=== PATIENT | male | born 1965 | race Caucasian/White ===

== ENCOUNTER 2023-09-24 09:09 | Day surgery (SDC) | payer OTHER ==
[2023-09-18 14:10] LABS: BASOPHILS # (AUTO) 0.1 X10'3 (0-0.2); BASOPHILS % (AUTO) 1.1 % (0-1); EOSINOPHILS # (AUTO) 0.3 X10'3 (0-0.9); EOSINOPHILS % (AUTO) 3.8 % (0-6); LYMPHOCYTES # (AUTO) 1.7 X10'3 (1.1-4.8); LYMPHOCYTES % (AUTO) 25.9 % (21-51); MEAN CORPUSCULAR HGB CONC 33.5 g/dL (33.0-36.5); MEAN CORPUSCULAR VOLUME 86.5 FL (78-98); MONOCYTES # (AUTO) 0.5 X10'3 (0-0.9); MONOCYTES % (AUTO) 7.5 % (2-12); NEUTROPHILS # (AUTO) 4.1 X10'3 (1.8-7.7); NEUTROPHILS % (AUTO) 61.7 % (42-75); PRE OP HEMATOCRIT 42.2 % (42.0-52.0); PRE OP HEMOGLOBIN 14.2 g/dL (14.0-17.9); PRE OP PLATELET COUNT 207 X10'3 (140-440); PRE OP WHITE BLOOD COUNT 6.6 10'3 (4.8-10.8); RED BLOOD COUNT 4.88 X10'6 (4.70-6.10); RED CELL DISTRIBUTION WIDTH 14.6 % (11.5-14.5)
[2023-09-18 14:35] LABS: ALBUMIN 3.9 G/DL (3.4-5.0); ALBUMIN/GLOBULIN RATIO 1.3 (1.1-1.5); ALKALINE PHOSPHATASE 74 IU/L (46-116); BLOOD UREA NITROGEN 18 MG/DL (7-18); BUN/CREATININE RATIO 17.8 (10.0-20.0); CALCIUM 9.4 MG/DL (8.5-10.1); CHLORIDE 105 MMOL/L (99-107); CREATININE 1.01 MG/DL (0.60-1.10); PRE OP ALT 42 U/L (30-65); PRE OP ANION GAP 7 (8-16); PRE OP AST 24 U/L (10-37); PRE OP BILIRUB, TOTAL 0.5 MG/DL (0.0-1.0); PRE OP GLUCOSE 95 MG/DL (70-104); PRE OP POTASSIUM 3.8 MMOL/L (3.4-5.1); PRE OP SODIUM 141 MMOL/L (135-145); TOTAL CARBON DIOXIDE 29.2 MMOL/L (24-32); TOTAL PROTEIN 6.9 G/DL (6.4-8.2); eGFR 76 ML/MIN
[~2023-09-24] VITALS: Ht 180.3 cm; Wt 88.5 kg
[2023-09-24] VITALS (9 sets, daily range): BP systolic 112–143; BP diastolic 69–80; PULSE 52–92; RESP 15–20; TEMP 97.8; O2SAT 92–100
[~2023-09-24 09:09] MED LIST: NO HOME MEDS; cefazolin 2gm/D5W 100mL 100 ML IV ONE; famotidine 20mg tablet PO ONE; ringers solution, lacted 1,000 ML IV SCH
[2023-09-24] MEDS ORDERED: LIDOCAINE 1%/EPI 1:100,000 inj. 10 ML multi-dose vial ONE ×2 (10:50)
[2023-09-24] MEDS ORDERED: rocuronium 10mg/ml inj IV ONE (10:51)
[2023-09-24] MEDS ORDERED: propofol inj 20 ML IV ONE (10:51)
[2023-09-24] MEDS ORDERED: fentaNYL/PF 50MCG/1 ML 2ML syringe ONE (10:51)
[2023-09-24] MEDS ORDERED: BUPIVAcaine/PF 2.5mg/ml (0.25%) 10ml vial ONE (10:51)
[2023-09-24] MEDS ORDERED: midazolam 1 mg/ML 2ml injection ONE (10:51)
[2023-09-24] MEDS ORDERED: sevoflurane 250ml liquid IH ONE (10:56)
[2023-09-24] MEDS ORDERED: LIDOcaine 2% (20mg/ml) 5ml vial ONE (10:56)
[2023-09-24] MEDS ORDERED: dexamethasone sod phosphate 4mg/ml inj. ONE (11:11)
[2023-09-24] MEDS ORDERED: LIDOcaine 1% W/epiNEPHrine 1:100,000 20ml vial IJ ONE (11:40)
[2023-09-24] MEDS ORDERED: BUPIVAcaine/PF 2.5 mg/ml (0.25%) 30ml vial IJ ONE (11:40)
[2023-09-24] MEDS ORDERED: meperidine/PF 25mg/ml syringe IV PRN ×3 (11:50)
[2023-09-24] MEDS ORDERED: ondansetron/PF 4mg/2ml inj IV PRN (11:50)
[2023-09-24] MEDS ORDERED: morphine 4 MG/ML inj SYRINge IV PRN (11:50)
[2023-09-24] MEDS ORDERED: morphine 2 MG/ML inj. syringe IV PRN (11:50)
[2023-09-24] MEDS ORDERED: proCHLORperazine 10 MG/2 ml inj IV PRN (11:50)
[2023-09-24] MEDS ORDERED: ringers solution, lacted 1,000 ML IV SCH (11:50)
[2023-09-24] MEDS ORDERED: ondansetron/PF 4mg/2ml inj ONE (12:23)
[2023-09-24] MEDS ORDERED: acetaminophen 1,000mg/100ml IV 100 ML IV ONE (12:28)
[2023-09-24] MEDS ORDERED: tobramycin 40mg/ml inj ONE (12:37)
[2023-09-24] MEDS ORDERED: sugammadex 200mg/2ml injection IV ONE (12:44)
--- NOTE | 2023-09-24 12:56 | NUR ---
Received from OR via , accompanied by Anesthesiologist DR DOMINGUEZ and report given by Anesthesiolgist. VSS. PATIENT SHIVERING. ON 8 LITERS WITH MASK. LAPSITES X 3 WITH DERMABOND AND COTTON. IV 20G LEFT HAND NO ISSUES. Addendum: 09/24/23 at 1317 by Marsha Pereira RN Amended: Links added.
--- NOTE | 2023-09-24 13:56 | NUR ---
PATIENT MEETS DISCHARGE CRITERIA. VSS. HEATH WEST EDUCATED PATIENT ON DISCHARGE INSTRUCTIONS. VERIFIED DOCTOR CALLED IN PAIN MEDS. WHEELED PATIENT TO HIS CAR. HE HAD HIS WATCH ON. Addendum: 09/24/23 at 1433 by Marsha Pereira RN Amended: Links added.
== END 2023-09-24 13:56 | disposition home or self-care (01) ==
LOC: PAS 09:09
PROVIDERS: ATTEND Colon & Rectal Surgery
DX: K40.20 Bilateral inguinal hernia, without obstruction or gangrene, not specified as recurrent (principal); Z98.890 Other specified postprocedural states; Z79.899 Other long term (current) drug therapy
CPT/HCPCS: 36415; 49650; 80053; 82948; 85025; 93005; A6258; C1781; J0131; J0690; J1100; J2175; J2250; J2405; J2704; J3010; J3260; J3490; J7030; J7120; S2900; Z7506; Z7508; Z7512; A4215; A4618; A7000; C1758